=== PATIENT | male | born 1980 | race African-American/Black ===

== ENCOUNTER 2021-08-22 10:11 | Outpatient (CLI) | payer SELFPAY ==
[2021-08-22 23:01] LABS: SARS-CoV-2 PCR by NAA Not Detected (NotDetected)
== END 2021-08-22 10:12 | disposition home or self-care (01) ==
LOC: LABBT 10:11
PROVIDERS: ATTEND Orthopaedic Surgery
DX: Z01.812 Encounter for preprocedural laboratory examination (principal); S89.301A Unspecified physeal fracture of lower end of right fibula, initial encounter for closed fracture; Z20.822 Contact with and (suspected) exposure to COVID-19
CPT/HCPCS: U0003; U0005

== ENCOUNTER 2021-08-27 10:41 | Day surgery (SDC) | payer OTHER ==
[2021-08-22 14:26] VITALS: BMI 34.7
[2021-08-27] MEDS ORDERED: ceFAZolin Sodium (SDC) 2 GM/100 ML BAG ONE (12:22)
[2021-08-27] MEDS ORDERED: Fentanyl 250 MCG/5 ML VIAL ONE ×2 (12:24→14:10)
[2021-08-27] MEDS ORDERED: Ondansetron PF 4 MG/2 ML Vial ONE (12:37)
[2021-08-27] MEDS ORDERED: Dexamethasone 20 MG/5 ML VIAL ONE (12:37)
[2021-08-27] MEDS ORDERED: Lidocaine 1% PF 5 ML VIAL ONE (12:37)
[2021-08-27] MEDS ORDERED: Midazolam HCl 2 mg/2 ml Vial ONE (12:37)
[2021-08-27] MEDS ORDERED: PROPOFOL 200 MG/20 ML VIAL ONE (12:37)
[2021-08-27] MEDS ORDERED: Morphine 4 MG/ML VIAL ONE ×2 (14:17→14:54)
[2021-08-27] MEDS ORDERED: Ketorolac Tromethamine 30 MG/ML VIAL ONE (14:20)
[2021-08-27] MEDS ORDERED: HYDROcodone/Acetaminophen 5/325 mg Tablet ONE (15:08)
== END 2021-08-27 16:15 | disposition home or self-care (01) ==
LOC: SDC 10:41
PROVIDERS: ATTEND Orthopaedic Surgery
PROC: 0QSJ04Z Reposition Right Fibula with Internal Fixation Device, Open Approach (ICD-10-PCS; principal; 2021-08-27)
DX: S82.61XA Displaced fracture of lateral malleolus of right fibula, initial encounter for closed fracture (principal); M22.01 Recurrent dislocation of patella, right knee; I10 Essential (primary) hypertension; F17.210 Nicotine dependence, cigarettes, uncomplicated; E66.9 Obesity, unspecified; Z68.34 Body mass index [BMI] 34.0-34.9, adult; Z86.16 Personal history of COVID-19; W19.XXXA Unspecified fall, initial encounter
CPT/HCPCS: 76000; C1713; C1776; C1874; J0690; J1100; J1885; J2250; J2270; J2405; J2704; J3010